=== PATIENT | male | born 1960 | race Two or more races ===

== ENCOUNTER → 2017-10-18 07:42 | Outpatient (CLI) | payer OTHER | END | disposition home or self-care (01) | LOC: LAB 07:42 | DX: C78.7 Secondary malignant neoplasm of liver and intrahepatic bile duct (principal); I26.09 Other pulmonary embolism with acute cor pulmonale; I27.24 Chronic thromboembolic pulmonary hypertension ==

== ENCOUNTER 2017-10-18 08:29 | Outpatient (CLI) | payer OTHER | END 2017-10-18 16:48 | disposition home or self-care (01) | LOC: SONOGRAMA 08:29 → TOM 08:29 | DX: C78.7 Secondary malignant neoplasm of liver and intrahepatic bile duct (principal) ==